=== PATIENT | female | born 1950 | race Asian ===

== ENCOUNTER 2020-11-03 06:16 | Day surgery (SDC) | payer OTHER ==
[2020-11-01 12:33] LABS: COVID AG,FIA SOURCE NASOPHARYNGEAL
[~2020-11-03] VITALS: Ht 152.4 cm; Wt 45.5 kg
[~2020-11-03 06:16] MED LIST: AMLO10TA55 PO; APIX5TAB PO; ASPI-728 PO; CHOL10002 PO; CYCLOPENTOLATE HCL 1% 2 ML OPHTHALMIC SOLUTION ONE; DILT120C43 PO; FAMO20 PO; FURO40TA5 PO; INSU100I21 SQ; KETOROLAC TROMETHAMINE 0.5% 5 ML OPHTHALMIC SOLUTION ONE; LISI-618 PO; MAGN400T25 PO; METO100T14 PO; MOXIFLOXACIN HCL 0.5% 3 ML OPHTHALMIC SOLUTION ONE; PHENYLEPHRINE HCL 2.5% 2 ML OPHTHALMIC SOLUTION ONE; POTA-9 PO; PRAV20TA4 PO; PRED5 PO; SODIUM CHLORIDE 0.9% 500 ML IV ONE; TACR4TAB PO; TROPICAMIDE 1% 2 ML OPHTHALMIC SOLUTION ONE; ZOLP-280 PO
[2020-11-03] MEDS ORDERED: HYALURONATE SOD/CHONDROITIN SOD 0.5 ML VIAL IO ONE ×2 (06:17)
[2020-11-03] MEDS ORDERED: MIDAZOLAM HCL 2 MG/2 ML VIAL IVP ONE (06:17)
[2020-11-03] MEDS ORDERED: HYALURONATE SODIUM 12 MG/ML 0.8 ML SYRINGE IO ONE (06:17)
[2020-11-03] MEDS ORDERED: LIDOCAINE/PF 1% 2 ML VIAL IM ONE ×2 (06:17)
[2020-11-03] MEDS ORDERED: FentaNYL CITRATE PF 100 MCG/2 ML VIAL IVP ONE (06:17)
[2020-11-03] MEDS ORDERED: BALANCED SALT 15 ML OPHTHALMIC IRRIG.SOLN OD ONE (06:17)
[2020-11-03] MEDS ORDERED: PrednisoLONE ACETATE 1% 5 ML OPHTHALMIC SUSPENSION OD ONE (06:17)
[2020-11-03] MEDS ORDERED: TETRACAINE HCL/PF 0.5% 4 ML OPHTHALMIC SOLUTION OD ONE (06:17)
[2020-11-03] MEDS ORDERED: POVIDONE-IODINE 10% 15 ML SOLUTION UD TP ONE (06:17)
[2020-11-03] MEDS: PHENYLEPHRINE HCL 2.5% 2 ML OPHTHALMIC SOLUTION OD SCH ×3 (06:50→07:01)
[2020-11-03] MEDS: KETOROLAC TROMETHAMINE 0.5% 5 ML OPHTHALMIC SOLUTION OD SCH ×3 (06:50→07:01)
[2020-11-03] MEDS: CYCLOPENTOLATE HCL 1% 2 ML OPHTHALMIC SOLUTION OD SCH ×3 (06:50→07:01)
[2020-11-03] MEDS: TROPICAMIDE 1% 2 ML OPHTHALMIC SOLUTION OD SCH ×3 (06:50→07:01)
[2020-11-03] MEDS: MOXIFLOXACIN HCL 0.5% 3 ML OPHTHALMIC SOLUTION OD SCH ×3 (06:50→07:01)
[2020-11-03 07:00] LABS: GLUCOMETER DEV NAME(LOC) SDS.; GLUCOSE,POINT OF CARE 74 MG/DL (70-110)
[2020-11-03 11:52] LABS: GLUCOMETER DEV NAME(LOC) SDS.; GLUCOSE,POINT OF CARE 64 MG/DL (70-110)
== END 2020-11-03 12:10 | disposition home or self-care (01) ==
LOC: SURGERY 06:16
PROVIDERS: ATTEND Ophthalmology Glaucoma Specialist
DX: E11.36 Type 2 diabetes mellitus with diabetic cataract (principal); H25.11 Age-related nuclear cataract, right eye; E11.39 Type 2 diabetes mellitus with other diabetic ophthalmic complication; H42 Glaucoma in diseases classified elsewhere; I48.91 Unspecified atrial fibrillation; Z79.82 Long term (current) use of aspirin; Z79.899 Other long term (current) drug therapy; I10 Essential (primary) hypertension; Z94.0 Kidney transplant status; Z90.710 Acquired absence of both cervix and uterus; Z98.890 Other specified postprocedural states
CPT/HCPCS: 66982; 82962; 87426; C9803; J2250; J3010; J3490 ×2; J7040; V2632

== ENCOUNTER 2022-06-11 06:46 | Day surgery (SDC) | payer OTHER ==
[2022-06-08 08:36] LABS: COVID AG,FIA SOURCE NASAL SWAB
[~2022-06-11] VITALS: Ht 154.9 cm; Wt 46.3 kg
[~2022-06-11 06:46] MED LIST changes: +ASPI-1450 PO; -ASPI-728 PO; -CHOL10002 PO; +CHOL25TA4 PO; -INSU100I21 SQ; +INSU100V SQ; -LISI-618 PO; +LISI20TA24 PO; +POTA-203 PO; -POTA-9 PO; -PRED5 PO; +PRED5TAB2 PO; +RINGERS SOLUTION,LACTATED 500 ML IV ONE; -SODIUM CHLORIDE 0.9% 500 ML IV ONE
[2022-06-11] MEDS ORDERED: POVIDONE-IODINE 10% 15 ML SOLUTION UD TP ONE (06:47)
[2022-06-11] MEDS ORDERED: BALANCED SALT 15 ML OPHTHALMIC IRRIG.SOLN OS ONE (06:47)
[2022-06-11] MEDS ORDERED: CHONDR SULF A SOD/HYALURONATE 1.05 ML KIT IO ONE (06:47)
[2022-06-11] MEDS ORDERED: EPINEPHrine 1:1,000 [1 MG/ML] VIAL IM ONE (06:47)
[2022-06-11] MEDS ORDERED: TETRACAINE HCL/PF 0.5% 4 ML OPHTHALMIC SOLUTION OS ONE (06:47)
[2022-06-11] MEDS ORDERED: LIDOCAINE/PF 1% 2 ML VIAL IM ONE (06:47)
[2022-06-11] MEDS ORDERED: PrednisoLONE ACETATE 1% 5 ML OPHTHALMIC SUSPENSION OS ONE (06:47)
[2022-06-11] MEDS ORDERED: PHENYLEPHRINE HCL OS ONE (07:00)
[2022-06-11] MEDS: TROPICAMIDE 1% 2 ML OPHTHALMIC SOLUTION OS SCH ×3 (07:13→07:28)
[2022-06-11] MEDS: MOXIFLOXACIN HCL 0.5% 3 ML OPHTHALMIC SOLUTION OS SCH ×3 (07:13→07:28)
[2022-06-11] MEDS: PHENYLEPHRINE HCL 2.5% 2 ML OPHTHALMIC SOLUTION OS SCH ×3 (07:14→07:28)
[2022-06-11] MEDS: KETOROLAC TROMETHAMINE 0.5% 5 ML OPHTHALMIC SOLUTION OS SCH ×3 (07:14→07:28)
[2022-06-11] MEDS: CYCLOPENTOLATE HCL 1% 2 ML OPHTHALMIC SOLUTION OS SCH ×3 (07:14→07:28)
[2022-06-11 07:30] LABS: GLUCOMETER DEV NAME(LOC) SDS.; GLUCOSE,POINT OF CARE 167 MG/DL (70-110)
[2022-06-11] MEDS ORDERED: 0.9% SODIUM CHLORIDE 10 ML SYRINGE IVP PRN (08:00)
[2022-06-11] MEDS ORDERED: FentaNYL CITRATE PF 100 MCG/2 ML VIAL IVP ONE (12:00)
[2022-06-11] MEDS ORDERED: MIDAZOLAM HCL 2 MG/2 ML VIAL IVP ONE (12:00)
== END 2022-06-11 10:35 | disposition home or self-care (01) ==
LOC: SURGERY 06:46
PROVIDERS: ATTEND Ophthalmology Glaucoma Specialist
DX: E11.36 Type 2 diabetes mellitus with diabetic cataract (principal); H25.12 Age-related nuclear cataract, left eye; E11.22 Type 2 diabetes mellitus with diabetic chronic kidney disease; N18.6 End stage renal disease; I12.0 Hypertensive chronic kidney disease with stage 5 chronic kidney disease or end stage renal disease; I48.91 Unspecified atrial fibrillation; Z79.899 Other long term (current) drug therapy; Z90.710 Acquired absence of both cervix and uterus; Z98.890 Other specified postprocedural states; Z94.0 Kidney transplant status
CPT/HCPCS: 93005; 87426; 66984; 82962; C9803; J0171; J3010; J3490; J2250; Q9967; J7120; V2632